=== PATIENT | female | born 2000 | race Asian ===

== ENCOUNTER 2024-09-01 09:33 | Inpatient (IN) ==
[2024-09-01] MEDS ORDERED: LIDOCAINE 1% LOCAL 20 ML VIAL INFIL PRN (09:52)
[2024-09-01] MEDS ORDERED: OXYTOCIN 30 UNITS/NSS 30 UNITS/500 ML BAG IV PRN (09:52)
[2024-09-01] MEDS: LACTATED RINGER'S 1,000 ML IV SCH (10:05)
[2024-09-01 10:24] LABS: Hematocrit (blood only) 31.6 % (37.0-47.0); Hemoglobin 10.4 g/dl (12.0-16.0); Mean Corpuscular Hemoglobin 27.6 pg (25.0-34.0); Mean Corpuscular Hgb Conc 32.9 g/dL (32.0-36.0); Mean Corpuscular Volume 83.8 fL (80.0-100.0); Mean Platelet Volume 10.3 fL (9.4-12.4); Platelet Count 217 K/uL (130-400); RDW Coefficient of Variation 13.8 % (11.5-14.5); RDW Standard Deviation 42.2 fL (36.4-46.3); Red Blood Count 3.77 M/uL (4.20-5.40); White Blood Count 7.27 K/ul (4.8-10.8)
[2024-09-01] MEDS ORDERED: NALBUPHINE HCL INJ 10 MG/ML AMP IV PRN (10:36)
[2024-09-01] MEDS ORDERED: ONDANSETRON INJ 2 MG/ML 2 ML VIAL IV PRN (10:36)
[2024-09-01] MEDS ORDERED: NALOXONE HCL 0.4 MG/1 ML VIAL/CARP IV PRN (10:36)
[2024-09-01] MEDS ORDERED: diphenhydrAMINE 50 MG/ML VIAL IV PRN (10:36)
[2024-09-01] MEDS ORDERED: fentaNYL citrate PF 100 MCG/2 ML VIAL EPI PRN (10:36)
[2024-09-01] MEDS ORDERED: BUPIVACAINE 0.25% PF 30 ML VIAL EPI PRN (10:36)
[2024-09-01] MEDS ORDERED: SODIUM CHLORIDE 0.9% PF INJ 10 ML VIAL EPI PRN (10:36)
[2024-09-01] MEDS ORDERED: ROPIVACAINE 0.5% PF 5 MG/ML 20 ML VIAL EPI PRN (10:36)
[2024-09-01] MEDS ORDERED: LIDOCAINE 2% MPF LOCAL 5 ML VIAL EPI PRN (10:36)
[2024-09-01] MEDS ORDERED: NALOXONE HCL 1 MG in SODIUM CHLORIDE 0.9% 1,000 ML IV PRN (10:36)
--- NOTE | 2024-09-01 10:37 | Anesthesiology Consultation ---
Date of Service September 01, 2024 Assessment & Plan (1) Encounter for pre-operative examination: Chart Review Chart Review: Patient NOT seen in Pre Admission Testing and Acceptable Risk for Labor Epidural Consults Requested none History Height/Weight Height: 5 ft 6 in Weight: 100.344 kg Allergies Allergy/AdvReac Type Severity Reaction Status Date / Time No Known Allergies Allergy Verified 08/31/24 15:16 Medications Home Medications Medication Instructions Recorded Confirmed Last Taken 21-iron fu-folic acid PO 01/16/24 08/31/24 08/31/24 [ Complete] acetone (urine) test (Ketone Urine #50 ea 05/06/24 08/31/24 Unknown Test strips) blood sugar diagnostic (OneTouch #150 ea 05/06/24 08/31/24 Unknown Verio test strips) lancets 33 gauge (OneTouch Delica #150 ea 05/06/24 08/31/24 Unknown Plus Lancet) blood-glucose meter (OneTouch #1 ea 05/07/24 08/31/24 Unknown Verio Reflect Meter) Active Medications Generic Name Dose Route Start Last Admin Trade Name Freq PRN Reason Stop Dose Admin Lactated Ringer's 1,000 mls @ 125 mls/hr 09/01/24 10:15 09/01/24 10:35 Lr IV 09/02/24 10:14 50 mls/hr .Q8H MARITZA Infusion Past Medical History Medical History (Updated 09/01/24 @ 10:37 by Gurinder Kelly MD) Encounter for pre-operative examination Gestational diabetes Diet - controlled Varicella vaccination History of COVID-19 05/2022- flu like symptoms; resolved No known health problems Exercise / Class Metabolic Activity II 4-5 Yardwork/Stairs/Walk up hill Past Family History Family History Grandfather (Paternal) Bladder cancer Denies family history of Ovarian cancer Prostate cancer Myocardial infarction Breast cancer Lung cancer Colorectal cancer Past Surgical History Surgical History S/P dilatation and curettage hysteroscopy -endometrial polyp Past Anesthesia History No Hx of Anesthesia Complications and No Family Hx of Anesthesia Complications History of PONV No Hx of PONV Social History Smoking Status: Never smoker Do You Dip or Chew Tobacco: No Hx Alcohol Use: No Hx Substance Use: No substance use type: does not use Physical Exam Vital Signs Last Vital Signs Temp 36.5 C 09/01/24 09:53 Pulse 78 09/01/24 11:00 Resp 20 09/01/24 09:53 BP 123/73 09/01/24 11:00 Pulse Ox 98 09/01/24 10:59 Testing Laboratory Results 09/01/24 10:10 09/01/24 10:06 POC Glucose 89
[2024-09-01] MEDS: BUPIVACAINE 0.25% PF 30 ML VIAL ONE (11:01)
[2024-09-01] MEDS: fentaNYL citrate PF 100 MCG/2 ML VIAL ONE (11:01)
[2024-09-01] MEDS: LIDOCAINE 2%/EPINEPHRINE 1:200,000 20 ML PF ONE (11:01)
[2024-09-01] MEDS: fentANYL 2 MCG/ML BUPIVacaine 0.125%-NSS 100ML BAG ONE (11:04)
[2024-09-01] MEDS: SODIUM CHLORIDE 0.9% PF INJ 10 ML VIAL ONE (12:06)
[2024-09-01] MEDS: ePHEDrine sulfate 50 MG/ML AMP ONE (12:06)
[2024-09-01] MEDS: SODIUM CHLORIDE 0.9% PF INJ 10 ML VIAL EPI STA (12:08)
[2024-09-01] MEDS: BUPIVACAINE 0.25% PF 30 ML VIAL EPI STA (12:08)
[2024-09-01] MEDS: fentaNYL citrate PF 100 MCG/2 ML VIAL EPI STA (12:08)
[2024-09-01] MEDS: LIDOCAINE 2%/EPINEPHRINE 1:200,000 20 ML PF EPI STA (12:08)
[2024-09-01] MEDS: ePHEDrine sulfate 50 MG/ML AMP IV PRN (13:56)
[2024-09-01] MEDS: OXYTOCIN 30 UNITS/NSS 30 UNITS/500 ML BAG IV PRN (17:23)
[2024-09-01] MEDS: fentANYL 2 MCG/ML BUPIVacaine 0.125%-NSS 100ML BAG EPI PRN (17:28)
--- NOTE | 2024-09-02 01:09 | Delivery Summary ---
Vaginal Delivery Summary Date of Service September 02, 2024 Vaginal Delivery Summary and 2nd Degree LAC Spontaneous vaginal delivery arrived in active labor received epidural artificial rupture of membranes and then progressed to fully dilated pushing over several contractions delivering baby in occiput anterior position there was light meconium once the head was delivered there was no nuchal cord gentle traction on the baby combined with maternal expulsive efforts resulted in easy delivery of a live vigorous male Cord clamped and cut cord gases obtained cord blood obtained placenta removed with traction IV Pitocin started second- degree tear repaired with 3-0 Vicryl in the usual fashion sponge and instrument counts correct QBL 3 6 7 mL [facility] Vaginal Delivery Charge Delivery Type Details: and 2nd Degree LAC
[2024-09-02] MEDS ORDERED: HYDROCORTISONE ACETATE 25 MG SUPP PR PRN (01:25)
[2024-09-02] MEDS ORDERED: oxyCODONE/ACETAMINOPHEN 5mg/325mg TAB PO PRN (01:25)
[2024-09-02] MEDS ORDERED: OXYTOCIN 30 UNITS/NSS 30 UNITS/500 ML BAG IV PRN (01:25)
[2024-09-02 01:46] LABS: Base Excess Cord Venous Blood -9.3 mEq/L (-7.7-1.9); CO2 Cord Arterial Blood 61 mmHg (39.1-73.5); Cord Venous Blood HCO3 19 mmol/L (18.4-26.8); Cord Venous Blood PCO2 48 mmHg (30.4-57.2); Cord Venous Blood PO2 < 20 mmHg (14.1-43.3); HCO3 Cord Arterial Blood 21 mmol/L (19.7-28.5); O2 Saturation Cord Venous Bld < 60.0 % (<68); Oxygen Sat Cord Arterial Blood < 60.0 % (<60); PO2 Cord Arterial Blood < 20 mmHg (4.1-31.7); pH Cord Arterial Blood 7.14 (7.1-7.38)
--- NOTE | 2024-09-02 07:56 | Obstetrical Progress Note ---
Date of Service September 02, 2024 Assessment & Plan (1) Gestational diabetes mellitus (GDM) affecting , antepartum: day #0 the patient is doing well minimal bleeding and pain continue current care Subjective Ambulation: ambulating normally Voiding: no voiding problems Passing Gas:: Yes Diet Tolerance:: regular diet Lochia:: Small Physical Exam Constitutional WD/WN, vitals as above well developed and well nourished Respiratory normal respiratory effort, lungs clear to auscultation normal respiratory effort Cardiovascular RRR, no murmur, no edema Gastrointestinal (Abdomen) normal bowel sounds, soft, nontender, no hepatosplenomegaly Results & Data Vital Signs (Past 12 Hours) Vital Signs Temp Pulse Pulse Resp BP BP Pulse Ox 09/02/24 04:45 98.2 F 85 16 105/64 97 09/02/24 04:20 16 09/02/24 03:50 85 104/57 L 09/02/24 03:35 93 H 113/63 09/02/24 03:20 101 H 101/56 L 09/02/24 03:05 93 H 18 100/54 L 09/02/24 02:50 88 101/55 L 09/02/24 02:35 18 09/02/24 02:35 97 H 97/52 L 09/02/24 02:20 91 H 132/54 L 09/02/24 02:05 99 H 123/58 L 09/02/24 01:50 16 09/02/24 01:50 100 H 121/64 09/02/24 01:35 18 09/02/24 01:35 97 H 116/63 09/02/24 01:20 18 09/02/24 01:20 91 H 102/50 L 09/02/24 01:05 98.2 F 18 09/02/24 01:05 93 H 106/55 L 09/02/24 00:57 96 H 98 09/02/24 00:54 18 09/02/24 00:54 98.2 F 18 09/02/24 00:52 94 H 96 09/02/24 00:47 93 H 97 09/02/24 00:46 91 H 83 L 09/02/24 00:42 88 98 09/02/24 00:39 91 H 84 L 09/02/24 00:37 87 99 09/02/24 00:32 78 99 09/02/24 00:27 95 H 97 09/02/24 00:26 118 H 87 L 09/02/24 00:22 89 96/51 L 97 09/02/24 00:16 98 H 94 09/02/24 00:15 85 81 L 09/02/24 00:11 113 H 97 09/02/24 00:06 106 H 95 09/02/24 00:01 105 H 91 09/02/24 00:00 107 H 85 L 09/01/24 23:56 101 H 97 09/01/24 23:51 113 H 95 09/01/24 23:50 111 H 76/48 L 09/01/24 23:46 110 H 98 09/01/24 23:41 97 H 95 09/01/24 23:36 94 H 92 09/01/24 23:35 105 H 70/43 L 09/01/24 23:31 98 H 95 09/01/24 23:26 98 H 96 09/01/24 23:21 96 09/01/24 23:21 98 H 09/01/24 23:21 105 H 74/45 L 09/01/24 23:20 104 H 85 L 09/01/24 23:16 102 H 98 09/01/24 23:11 98 H 98 09/01/24 23:06 104 H 100 09/01/24 23:01 98 H 96 09/01/24 22:56 16 09/01/24 22:56 98.6 F 109 H 16 98 09/01/24 22:51 99 H 97 09/01/24 22:50 103 H 107/64 09/01/24 22:46 104 H 97 09/01/24 22:41 107 H 98 09/01/24 22:36 96 09/01/24 22:36 93 H 09/01/24 22:36 93 H 117/69 09/01/24 22:31 89 99 09/01/24 22:26 97 H 99 09/01/24 22:21 92 H 98 09/01/24 22:20 90 119/72 09/01/24 22:16 95 H 97 09/01/24 22:11 91 H 96 09/01/24 22:06 102 H 96 09/01/24 22:05 85 116/76 09/01/24 22:01 87 98 09/01/24 21:56 89 94 09/01/24 21:51 89 95 09/01/24 21:50 95 H 16 111/70 09/01/24 21:46 88 92 09/01/24 21:41 86 92 09/01/24 21:36 88 106/62 93 09/01/24 21:31 85 92 09/01/24 21:26 84 92 09/01/24 21:22 87 101/65 09/01/24 21:21 85 95 09/01/24 21:16 87 93 09/01/24 21:11 88 94 09/01/24 21:06 86 93 09/01/24 21:05 88 97/62 L 09/01/24 21:01 89 93 09/01/24 20:56 89 94 09/01/24 20:51 95 09/01/24 20:51 88 09/01/24 20:51 86 112/64 09/01/24 20:49 16 09/01/24 20:49 98.8 F 16 09/01/24 20:46 97 H 96 09/01/24 20:41 113 H 97 09/01/24 20:36 95 H 96 09/01/24 20:35 100 H 84/48 L 09/01/24 20:31 99 H 96 09/01/24 20:26 99 H 96 09/01/24 20:21 97 H 95 09/01/24 20:20 97 H 101/59 L 09/01/24 20:16 95 H 96 09/01/24 20:11 97 H 95 09/01/24 20:06 96 09/01/24 20:06 100 H 09/01/24 20:06 95 H 102/55 L 09/01/24 20:01 101 H 96 09/01/24 19:56 103 H 96 O2 Del Method 09/02/24 04:45 Room Air 09/02/24 04:20 09/02/24 03:50 09/02/24 03:35 09/02/24 03:20 09/02/24 03:05 09/02/24 02:50 09/02/24 02:35 09/02/24 02:35 09/02/24 02:20 09/02/24 02:05 09/02/24 01:50 09/02/24 01:50 09/02/24 01:35 09/02/24 01:35 09/02/24 01:20 09/02/24 01:20 09/02/24 01:05 09/02/24 01:05 09/02/24 00:57 09/02/24 00:54 09/02/24 00:54 09/02/24 00:52 09/02/24 00:47 09/02/24 00:46 09/02/24 00:42 09/02/24 00:39 09/02/24 00:37 09/02/24 00:32 09/02/24 00:27 09/02/24 00:26 09/02/24 00:22 09/02/24 00:16 09/02/24 00:15 09/02/24 00:11 09/02/24 00:06 09/02/24 00:01 09/02/24 00:00 09/01/24 23:56 09/01/24 23:51 09/01/24 23:50 09/01/24 23:46 09/01/24 23:41 09/01/24 23:36 09/01/24 23:35 09/01/24 23:31 09/01/24 23:26 09/01/24 23:21 09/01/24 23:21 09/01/24 23:21 09/01/24 23:20 09/01/24 23:16 09/01/24 23:11 09/01/24 23:06 09/01/24 23:01 09/01/24 22:56 09/01/24 22:56 09/01/24 22:51 09/01/24 22:50 09/01/24 22:46 09/01/24 22:41 09/01/24 22:36 09/01/24 22:36 09/01/24 22:36 09/01/24 22:31 09/01/24 22:26 09/01/24 22:21 09/01/24 22:20 09/01/24 22:16 09/01/24 22:11 09/01/24 22:06 09/01/24 22:05 09/01/24 22:01 09/01/24 21:56 09/01/24 21:51 09/01/24 21:50 09/01/24 21:46 09/01/24 21:41 09/01/24 21:36 09/01/24 21:31 09/01/24 21:26 09/01/24 21:22 09/01/24 21:21 09/01/24 21:16 09/01/24 21:11 09/01/24 21:06 09/01/24 21:05 09/01/24 21:01 09/01/24 20:56 09/01/24 20:51 09/01/24 20:51 09/01/24 20:51 09/01/24 20:49 09/01/24 20:49 09/01/24 20:46 09/01/24 20:41 09/01/24 20:36 09/01/24 20:35 09/01/24 20:31 09/01/24 20:26 09/01/24 20:21 09/01/24 20:20 09/01/24 20:16 09/01/24 20:11 09/01/24 20:06 09/01/24 20:06 09/01/24 20:06 09/01/24 20:01 09/01/24 19:56
--- NOTE | 2024-09-02 08:37 | Anesthesia Procedure Note ---
Date of Service September 02, 2024 Anesthesia Post Epidural Note Vital Signs Vital Signs: Temp Pulse Resp BP Pulse Ox O2 Del Method 36.8 C 85 16 105/64 97 Room Air 09/02/24 04:45 09/02/24 04:45 09/02/24 04:45 09/02/24 04:45 09/02/24 04:45 09/02/24 04:45 Pain Intensity Bilateral Abdomen: Pain Intensity: 0 Notes Mental Status: alert / awake / arousable Nausea / Vomiting: adequately controlled Pain: adequately controlled Airway Patency, RR, SpO2: stable & adequate BP & HR: stable & adequate Hydration State: stable & adequate Neuraxial Anesthesia: was administered and sensory block is resolving Anesthetic Complications: no major complications apparent Epidural: Removed without complications and With tip intact
[2024-09-02] MEDS: DOCUSATE SODIUM 100 MG CAP PO SCH (08:39)
[2024-09-02] MEDS: PRENATAL VITAMIN 1 TAB PO SCH (08:39)
[2024-09-02] MEDS: IBUPROFEN 600 MG TAB PO PRN (11:59)
[2024-09-02] MEDS: BENZOCAINE 20% SPRY 85 APPLN/85 GM CAN EXT PRN (12:01)
[2024-09-02] MEDS: ACETAMINOPHEN 325 MG TAB PO PRN (20:29)
[2024-09-03 06:36] LABS: Hematocrit (blood only) 25.1 % (37.0-47.0); Hemoglobin 8.1 g/dl (12.0-16.0); Mean Corpuscular Hemoglobin 27.7 pg (25.0-34.0); Mean Corpuscular Hgb Conc 32.3 g/dL (32.0-36.0); Mean Platelet Volume 10.7 fL (9.4-12.4); Platelet Count 195 K/uL (130-400); RDW Coefficient of Variation 14.3 % (11.5-14.5); RDW Standard Deviation 44.6 fL (36.4-46.3); Red Blood Count 2.92 M/uL (4.20-5.40); White Blood Count 10.68 K/ul (4.8-10.8)
--- NOTE | 2024-09-03 08:38 | Obstetrical Progress Note ---
Date of Service September 03, 2024 Assessment & Plan (1) Encounter for care and examination after delivery: Day 1 status post vaginal delivery. course has been complicated by urinary retention with Swenson catheter replaced yesterday. Swenson removed this morning and we are awaiting spontaneous void. Otherwise doing well and will continue with routine care (2) Urinary retention: Subjective Ambulation: ambulating normally Voiding: voiding difficulty (Urinary retention yesterday with Swenson catheter replaced. Swenson removed this morning and await spontaneous void) Passing Gas:: Yes Diet Tolerance:: regular diet Lochia:: Small Physical Exam Constitutional WD/WN, vitals as above Respiratory normal respiratory effort; no respiratory distress and no labored breathing Cardiovascular Extremities: no calf tenderness Gastrointestinal (Abdomen) Inspection/Auscultation: abdomen normal to inspection; abdomen not distended Percussion/Palpation: abdomen soft; abdomen nontender, no guarding and abdomen not rigid Genitourinary OB Exam Abdomen: + fundal height Fundus: + firm and + relation to umbilicus (Below); not tender or not boggy Results & Data Vital Signs (Past 12 Hours) Vital Signs Temp Pulse Pulse Resp BP Pulse Ox O2 Del Method 09/03/24 07:22 36.8 C 67 16 108/72 97 Room Air 09/02/24 22:35 36.6 C 80 16 103/67 95 Room Air
[2024-09-03] MEDS: bisacodyL 5 MG TABEC PO SCH (20:16)
[2024-09-04] MEDS ORDERED: bisacodyL 10 MG SUPP PR PRN (01:25)
[2024-09-04 06:36] LABS: Hematocrit (blood only) 24.1 % (37.0-47.0)
--- NOTE | 2024-09-04 08:46 | Obstetrical Progress Note ---
Date of Service September 04, 2024 Assessment & Plan (1) Urinary retention: (2) Encounter for care and examination after delivery: Plan 24 yo PP2 s/p . VSS Crowder catheter replaced yesterday am, will remove and TOV this AM. If unable to void, will dc w/ catheter and have bladder challenge in office B+, rubella imm stable for dc Subjective Ambulation: ambulating normally Voiding: crowder catheter in place (urinary retention, replaced again yesterday) Passing Gas:: Yes Diet Tolerance:: regular diet Lochia:: Small Feeding Type:: breast feeding Pain well managed with medication Review of Systems Denies fevers, chills, n/v, BANKS, CP, SOB Physical Exam Constitutional WD/WN, vitals as above no acute distress Respiratory normal respiratory effort, lungs clear to auscultation Gastrointestinal (Abdomen) Percussion/Palpation: abdomen soft; abdomen nontender fundus firm at umbilicus and NT Musculoskeletal BLE symmetric, nonerythematous, nontender Results & Data Vital Signs (Past 12 Hours) Vital Signs Temp Pulse Resp BP Pulse Ox O2 Del Method 09/03/24 23:15 98.4 F 84 18 99/63 L 99 Room Air
--- NOTE | 2024-09-04 10:50 | Hospitalist Consultation ---
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 Volume optimize, electrolyte optimize to goal potassium 4.0, goal Mag 2.0 Vagal maneuvers, syringe valsalva x2 without conversion. Was pending adenosine administration, and patient converted back to sinus rhythm during hospitalist assessment. Adenosine deferred Will monitor for 24 hours on PCU (2) Normal vaginal delivery: G3, P1 s/p 09/02/2024 Management per primary OB service Plan DVT prophylaxis: Ambulate Disposition: PCU CODE STATUS: Full code History of Present Illness Attending Physician: Agus Castillo MD, FACOG History of Present Illness 24yo F with no past medical problems, who takes no chronic medications who presented G3, P1 now s/p normal spontaneous vaginal delivery on 09/02/2024. She was doing well, though is followed for urinary retention until this morning when she was walking to the bathroom when she suddenly became flushed and had a sensation of palpitations. Heart rate had been 7080s, jumped suddenly up to 160s. EKG was obtained and is suspicious for SVT/AVNRT. Pseudo-R wave was noted in V1 although no discrete retrograde P waves were seen on my interpretation. Patient had been transiently tachycardic but generally improved day of assessment. She was not hypotensive at time of consultation. Patient was seen at the bedside. Vagal maneuvers using a 10 cc syringe were attempted x 2, patient also attempted to Valsalva/bear down in the bathroom without success fully breaking her SVT. She is seen at the bedside with a heart rate of approximately 160 by palpation, no lightheadedness/dizziness although felt flushed. No chest pain or chest pressure. She denies fever chills. No abdominal pain. No nausea/vomiting. Reports that she had been eating okay and did not have any issues with ongoing bleeding. Reviewed transfer to PCU for adenosine treatment however during that conversation patient did spontaneously break and returned to a normal sinus rhythm with a rate of 7080. EKG was obtained at the bedside which confirmed return to normal sinus rhythm, initial EKG did have some demand ischemic changes these completely resolved on repeat immediately following conversion to NSR. Suspect SVT induced by high catecholamine state . Patient may also be slightly volume contracted. Labs including CBC, CMP, TSH, magnesium were ordered and patient transferred to PCU for additional care. Given recent status and risk for stress cardiomyopathy, echo was ordered. Cardiology following. No indication for supp ressive medications at time of reassessment Medical History: Reviewed Medications: Reviewed Surgical History: Reviewed Family history: Reviewed Allergies: Reviewed Social History: Denies tobacco/alcohol/substance use Code Status: Full code Allergies Allergy/AdvReac Type Severity Reaction Status Date / Time No Known Allergies Allergy Verified 08/31/24 15:16 Home Medications Medication Instructions Recorded Confirmed Type 21-iron fu-folic acid PO 01/16/24 08/31/24 History [ Complete] acetone (urine) test (Ketone Urine #50 ea 05/06/24 08/31/24 Rx Test strips) blood sugar diagnostic (OneTouch #150 ea 05/06/24 08/31/24 Rx Verio test strips) lancets 33 gauge (OneTouch Delica #150 ea 05/06/24 08/31/24 Rx Plus Lancet) blood-glucose meter (OneTouch #1 ea 05/07/24 08/31/24 Rx Verio Reflect Meter) Patient History Medical History (Updated 09/04/24 @ 11:08 by Martin Galindo MD) Encounter for pre-operative examination Gestational diabetes Diet - controlled Varicella vaccination History of COVID-19 05/2022- flu like symptoms; resolved No known health problems Surgical History S/P dilatation and curettage hysteroscopy -endometrial polyp Family History Grandfather (Paternal) Bladder cancer Denies family history of Ovarian cancer Prostate cancer Myocardial infarction Breast cancer Lung cancer Colorectal cancer Social History (Updated 01/16/24 @ 14:13 by Ava Juarez) Smoking Status: Never smoker Second Hand Exposure: No; Do You Dip or Chew Tobacco: No; Hx Alcohol Use: No Hx Substance Use: No Preferred Language: Macedonian Communication Ability: Effective Visual Impairment: Limited Hearing Ability: Normal [place] Calciner Required: No Beliefs That Will Affect Care: None marital status: marital status details: Lindsay Desir (27) [phone] Current Living Situation: Spouse Current Living Situation Comment: lives with spouse, dogs, cats-spouse changing litter current occupational status: employed current occupation: teacher-[employer] How many Children do You have: 0 Other Information That Helps Us Care for You: No Feels Safe at Home: Yes Safety Concerns: Feels Safe At This Time Childhood Exposure to Second-Hand Smoke: Yes caffeine: Yes (coffee daily) Dental Care, Regularly: No Physical Activity Frequency: Does not Exercise Seatbelt Use: always Sunscreen Use: Yes (sometimes) Assistive Devices: Glasses Physical Exam Physical Exam: General: A&Ox3. NAD. Cooperative. Nontoxic-appearing. Answers questions appropriately HEENT: Atraumatic, normocephalic. Pulm: CTAB A&P. -wheezes, -rales, -rhonchi. Symmetrical chest rise. No increased work of breathing. No respiratory distress. Cardiac: Regular, tachycardic, -mrg. Radial pulses intact and symmetrical. --> subsequently converted to RRR during assessment Extremities: Warm, dry well-perfused Results & Data Results & Data Vital Signs (Past 12 Hours) Vital Signs Temp Pulse Pulse Pulse Resp BP Pulse Ox 09/04/24 10:16 160 H 94/62 L 96 09/04/24 09:40 160 H 18 109/73 97 09/04/24 07:50 36.8 C 77 16 106/67 98 09/03/24 23:15 36.9 C 84 18 99/63 L 99 O2 Del Method 09/04/24 10:16 Room Air 09/04/24 09:40 Room Air 09/04/24 07:50 Room Air 09/03/24 23:15 Room Air PG Care Time/CCT Total # of Minutes Spent Total Time Spent with Patient: Total time spent is greater than 50% in coordination of care (as documented) at patient's floor/unit and/or counseling patient: Coding Level of Care Code 49946 IN/OBS CONSULT LVL 3,45M Diagnoses SVT (supraventricular tachycardia) I47.10 Normal vaginal delivery O80
[2024-09-04 11:15] LABS: Albumin Globulin Ratio 1.1 (0.9-2); Albumin Level 3.4 gm/dl (3.4-5.0); BUN Creatinine Ratio 16.4 (10-20); Bilirubin,Total 0.2 mg/dl (0.2-1.0); Calcium 9.4 mg/dl (8.6-10.3); Creatinine Clr Calc Pharmacy 168.5 ml/min; Potassium 3.9 mmol/L (3.5-5.1); Total Protein 6.4 gm/dl (6.0-8.3)
[2024-09-04 11:16] LABS: Basophils # (auto) 0.03 K/uL (0.00-0.20); Basophils % (auto) 0.4 %; Eosinophils # (auto) 0.12 K/uL (0.00-0.50); Eosinophils % (auto) 1.4 %; Hematocrit (blood only) 29.2 % (37.0-47.0); Hemoglobin 9.6 g/dl (12.0-16.0); Immature Granulocytes # (auto) 0.08 K/uL (0.01-0.20); Immature Granulocytes % (auto) 0.9 %; Lymphocytes # (auto) 1.77 K/uL (1.20-3.40); Lymphocytes % (auto) 20.8 %; Mean Corpuscular Hemoglobin 27.6 pg (25.0-34.0); Mean Corpuscular Hgb Conc 32.9 g/dL (32.0-36.0); Mean Corpuscular Volume 83.9 fL (80.0-100.0); Mean Platelet Volume 10.3 fL (9.4-12.4); Monocytes # (auto) 0.41 K/uL (0.11-0.59); Monocytes % (auto) 4.8 %; Neutrophils # (auto) 6.08 K/uL (1.40-6.50); Neutrophils % (auto) 71.7 %; Platelet Count 244 K/uL (130-400); RDW Coefficient of Variation 14.1 % (11.5-14.5); Red Blood Count 3.48 M/uL (4.20-5.40); White Blood Count 8.49 K/ul (4.8-10.8)
[2024-09-04 11:21] LABS: Troponin I High Sensitivity 17.2 pg/ml (0-14)
[2024-09-04 11:30] LABS: Thyroid Stimulating Hormone 3.1 uIu/ml (0.300-4.500)
[2024-09-04 13:12] LABS: Magnesium 1.7 mg/dl (1.7-2.4)
[2024-09-04] MEDS: DIPHTHER/TETAN/PERTUS Vaccine (Tdap, Adol/Adult) 0.5mL IM ONE (14:13)
--- NOTE | 2024-09-04 15:27 | Communication Note ---
Date of Service: September 04, 2024 pt with svt this am, spont converted. hospitalist consult appreciated. she will be monitored on 2nd floor to see if event recurs, other workup per hospitalist. Was voiding now. plan to see what next 24hr holds. will not go home today due to this.
[2024-09-05 00:37] VITALS: RESP 18
[2024-09-05 05:07] LABS: Basophils # (auto) 0.02 K/uL (0.00-0.20); Basophils % (auto) 0.3 %; Eosinophils # (auto) 0.17 K/uL (0.00-0.50); Eosinophils % (auto) 2.3 %; Hematocrit (blood only) 24.9 % (37.0-47.0); Immature Granulocytes # (auto) 0.07 K/uL (0.01-0.20); Immature Granulocytes % (auto) 0.9 %; Lymphocytes # (auto) 1.64 K/uL (1.20-3.40); Lymphocytes % (auto) 22.3 %; Mean Corpuscular Hemoglobin 27.7 pg (25.0-34.0); Mean Corpuscular Hgb Conc 32.1 g/dL (32.0-36.0); Mean Corpuscular Volume 86.2 fL (80.0-100.0); Mean Platelet Volume 9.8 fL (9.4-12.4); Monocytes # (auto) 0.45 K/uL (0.11-0.59); Monocytes % (auto) 6.1 %; Neutrophils # (auto) 5.02 K/uL (1.40-6.50); Neutrophils % (auto) 68.1 %; Platelet Count 192 K/uL (130-400); RDW Coefficient of Variation 13.9 % (11.5-14.5); Red Blood Count 2.89 M/uL (4.20-5.40); White Blood Count 7.37 K/ul (4.8-10.8)
[2024-09-05 05:19] LABS: BUN Creatinine Ratio 18.5 (10-20); Calcium 8.5 mg/dl (8.6-10.3); Creatinine Clr Calc Pharmacy 190.4 ml/min; Potassium 3.7 mmol/L (3.5-5.1)
--- NOTE | 2024-09-05 05:55 | Obstetrical Progress Note ---
Date of Service September 05, 2024 Assessment & Plan (1) Encounter for care and examination after delivery: (2) Urinary retention: Plan stable, ready for dc home from ob standpoint. will need leg bag teaching and plan voiding trial in office on . she is aware will give macrobid daily dose with catheter. reviewed her hgb, plans to take po iron. as far as her history of svt, her continued stay dependent on hospitalist care and mgmt and appreciate their help. once dc, plan 6wk pp check in office. instructions reviewed. Day #:: 2 Subjective Ambulation: ambulating normally (on site monitor currently.) Voiding: crowder catheter in place and voiding difficulty (failed voiding trial again, with 2100cc in bladder when catheter placed last pm) Diet Tolerance:: regular diet Lochia:: Small Feeding Type:: breast feeding no pain issues. no other svt episodes per pt. Constitutional: + as per Subjective / HPI Physical Exam Constitutional WD/WN, vitals as above Respiratory normal respiratory effort, lungs clear to auscultation Cardiovascular Rate/Rhythm: regular rate and regular rhythm Gastrointestinal (Abdomen) Inspection/Auscultation: abdomen normal to inspection Percussion/Palpation: abdomen soft fundus firm 2 cm below umbilicus Musculoskeletal nt calves no edema Neurologic grossly normal Psychiatric A+Ox3, euthymic affect Results & Data Vital Signs (Past 12 Hours) Vital Signs Temp Pulse Pulse Resp BP Pulse Ox O2 Del Method 09/05/24 03:44 97.9 F 70 18 106/63 95 Room Air 09/05/24 00:56 105 H 09/05/24 00:36 98.1 F 79 18 108/58 L 94 Room Air
[2024-09-05 07:38] VITALS: BP 108/70; PULSE 85; TEMP 97.3; O2SAT 97
[2024-09-05] MEDS: NITROFURANTOIN MONOHYDRATE 100 MG CAP PO STA (07:49)
--- NOTE | 2024-09-05 08:16 | Communication Note ---
Date of Service: September 05, 2024 pt is medically stable for discharge
--- NOTE | 2024-09-05 08:35 | Cardiology Consultation ---
Date of Consultation September 04, 2024 Assessment & Plan (1) SVT (supraventricular tachycardia): Plan 1. 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 It is possible it is an arrhythmia due to a concealed bypass tract. She does not have evidence of antegrade bypass tract conduction. With this I do not think any further treatment is necessary at this time. I did discuss with her the possibility that she will have recurrence in the future, I think that is likely but it could be some time and it does not seem to be a dangerous arrhythmia. If she tries vagal maneuvers when it first starts she may be more successful in terminating it. I would hesitate to use medications or proceed to ablation in the setting. I would recommend sending her home and reevaluate should she have a future recurrence. History of Present Illness Reason for Consultation: SVT Attending Physician: Agus Castillo MD, FACOG History of Present Illness This is a 24-year-old woman who presented for a delivery on September 02, 2024. I believe she did well with her delivery however on the morning of September 04, 2024 developed a rapid supraventricular tachycardia. Vagal maneuvers were attempted, initially this was unsuccessful however prior to administration of adenosine the arrhythmia did terminate. She does not recall ever having this arrhythmia before, she was quite symptomatic and feels that she would wear a bit at this. She did not feel well with it but primarily had a sensation of a rapid heart rate and did not have hemodynamic symptoms. Following termination of the arrhythmia she had no further cardiovascular sympt oms. Evaluation of her twelve-lead electrocardiogram demonstrates a narrow complex supraventricular tachycardia which is likely typical AV clara reentry although I cannot be confident. Allergies Allergy/AdvReac Type Severity Reaction Status Date / Time No Known Allergies Allergy Verified 08/31/24 15:16 Home Medications Medication Instructions Recorded Confirmed Type 21-iron fu-folic acid PO 01/16/24 08/31/24 History [ Complete] nitrofurantoin 100 mg PO DAILY #2 caps 09/05/24 Rx monohydrate/macrocrystals 100 mg capsule (Macrobid) Patient History Medical History Encounter for pre-operative examination Gestational diabetes Diet - controlled Varicella vaccination History of COVID-19 05/2022- flu like symptoms; resolved No known health problems Surgical History S/P dilatation and curettage hysteroscopy -endometrial polyp Family History Grandfather (Paternal) Bladder cancer Denies family history of Ovarian cancer Prostate cancer Myocardial infarction Breast cancer Lung cancer Colorectal cancer Social History Smoking Status: Never smoker Second Hand Exposure: No; Do You Dip or Chew Tobacco: No; Hx Alcohol Use: No Hx Substance Use: No Preferred Language: Austrian Communication Ability: Effective Visual Impairment: Limited Hearing Ability: Normal Securities Dealer Required: No Beliefs That Will Affect Care: None marital status: marital status details: Lindsay Desir (27) [phone] Current Living Situation: Spouse Current Living Situation Comment: lives with spouse, dogs, cats-spouse changing litter current occupational status: employed current occupation: teacher-[employer] How many Children do You have: 0 Feels Safe at Home: Yes Childhood Exposure to Second-Hand Smoke: Yes caffeine: Yes (coffee daily) Dental Care, Regularly: No Physical Activity Frequency: Does not Exercise Seatbelt Use: always Sunscreen Use: Yes (sometimes) Assistive Devices: Glasses Review of Systems Review of Systems: All systems reviewed & are unremarkable except as noted in HPI & below Physical Exam Physical Exam: Constitutional: Alert, cooperative and in no distress. HEENT: Unremarkable Neck: No jugular venous distention, carotid pulses are normal and equal bilaterally without bruits. Pulmonary: Clear to auscultation bilaterally. Cardiac: Regular rhythm with no murmur, gallop or rub. Abdomen: Soft, nontender with normal bowel sounds. Extremities: No edema. Distal pulses intact. Neurologic: No focal findings. Gait is steady. Skin: No rash, ecchymoses or petechiae. Results & Data Vital Signs (Past 12 Hours) Vital Signs Temp Pulse Pulse Resp BP Pulse Ox O2 Del Method 09/05/24 07:37 36.3 C L 85 18 108/70 97 Room Air 09/05/24 07:08 70 09/05/24 03:44 36.6 C 70 18 106/63 95 Room Air 09/05/24 00:56 105 H 09/05/24 00:36 36.7 C 79 18 108/58 L 94 Room Air Laboratory Results Laboratory studies are noncontributory to her SVT Diagnostic Findings Telemetry: Although she was not on telemetry when the arrhythmia started, she was later transferred but sometime after the arrhythmia. On telemetry she was in sinus rhythm without ectopy. Echocardiogram: An echocardiogram done on September 04, 2024 shows normal left ventricular size and function with an ejection fraction of 55 to 60% and mild concentric left ventricular hypertrophy. She has a mildly dilated aortic root to 3.8 cm and a mildly dilated ascending aorta 3.6 cm. 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 None of these are related to her SVT. PG Care Time/CCT Total # of Minutes Spent Total Time Spent with Patient: Total time spent is greater than 50% in coordination of care (as documented) at patient's floor/unit and/or counseling patient: Coding Level of Care Code 41929 IN/OBS CONSULT LVL 3,45M Diagnoses SVT (supraventricular tachycardia) I47.10
--- NOTE | 2024-09-05 09:55 | XCELERA ---
[id number]
== END 2024-09-05 08:56 | disposition home or self-care (01) | DRG 806 ==
LOC: OPB 09:33 → 4S1 09:35 → 4E2 09-02 04:48 → 2S 09-04 13:55